=== PATIENT | female | born 1950 | race Caucasian/White ===

== ENCOUNTER 2021-02-17 20:48 | Inpatient (IN) | payer MEDICARE, OTHER ==
[~2021-02-17] VITALS: Ht 162.6 cm; Wt 52.4 kg
[2021-02-17 22:09] LABS: BASOPHIL 0.2 % (0-2); EOSINOPHIL 0 % (0-7); HCT 42.7 % (37.0-47.0); HGB 14.5 g/dl (12.5-16.0); LYMPHOCYTE 24.7 % (15-48); MCH 29.7 pg (25.0-31.0); MCV 87.5 fL (78.0-100.0); MONOCYTE 2.8 % (0-12); MPV 10.2 fL (6.0-9.5); NEUTROPHIL 71.7 % (41-80); NRBC 0; PLT 164 K/uL (150-400); RBC 4.88 M/uL (4.20-5.40); RDW 13.2 % (11.5-14.0)
[2021-02-17 22:12] LABS: WBC 6.4 K/uL (4.0-10.5)
[2021-02-17 22:26] LABS: ALBUMIN 3.4 g/dL (3.4-5.0); BILIRUBIN - TOTAL 0.4 mg/dL (0.2-1.0); CREATININE 0.91 mg/dL (0.51-0.95); GLOBULIN (CALCULATION) 4.3 g/dL; POTASSIUM 3.6 mmol/L (3.5-5.1); TOTAL PROTEIN 7.7 g/dL (6.4-8.2)
[2021-02-18 00:24] LABS: INFLUENZA A NAA NEGATIVE (NEGATIVE)
[2021-02-18 00:27] LABS: CORONAVIRUS 2019 SARS-COV-2 POSITIVE (NEGATIVE)
[2021-02-18 01:30] LABS: BILIRUBIN NEGATIVE (NEGATIVE); BLOOD 2+ Ery/uL (NEGATIVE); CLARITY CLEAR (CLEAR); GLUCOSE (U) NORMAL (NORMAL); LEUKOCYTES NEGATIVE Leu/uL (NEGATIVE); NITRITE NEGATIVE (NEGATIVE); PROTEIN 2+ mg/dL (NEGATIVE); UROBILINOGEN 0.2 mg/dL (0.2-1.0)
[2021-02-18 01:31] LABS: COLOR STRAW (YELLOW)
[2021-02-18 01:32] LABS: BACTERIA TRACE; SQUAMOUS EPITHELIAL CELLS RARE; URINARY WBC RARE
[2021-02-18] MEDS ORDERED: PROTONIX 40MG T40 MG PO (02:16)
[2021-02-18] MEDS ORDERED: ESTRACE1 MG PO (02:17)
[2021-02-18] MEDS ORDERED: CANDESARTAN-HC1 EACH TOP (02:18)
--- NOTE | 2021-02-18 03:14 | NUR ---
PT. C/O NRB FACE MASK HURTING HER FACE. RT IS PLACING PT. ON HIGH FLOW O2 SETTINGS AT 30L & 70%. ER, RN
[2021-02-18 05:31] LABS: BASOPHIL 0.2 % (0-2); EOSINOPHIL 0 % (0-7); HCT 40.1 % (37.0-47.0); HGB 13.4 g/dl (12.5-16.0); LYMPHOCYTE 10.6 % (15-48); MCH 29.7 pg (25.0-31.0); MCHC 33.4 g/dL (32.0-36.0); MCV 88.9 fL (78.0-100.0); MONOCYTE 2.6 % (0-12); MPV 10.5 fL (6.0-9.5); NEUTROPHIL 85.6 % (41-80); NRBC 0; PLT 154 K/uL (150-400); RBC 4.51 M/uL (4.20-5.40); RDW 13.2 % (11.5-14.0)
[2021-02-18 05:34] LABS: BUN/CREAT RATIO (CALC) 21.8 RATIO; CREATININE 0.87 mg/dL (0.51-0.95); WBC 6.1 K/uL (4.0-10.5)
--- NOTE | 2021-02-18 15:31 | NUR ---
02/18/21 Will monitor for 02 needs.
[2021-02-21 07:35] LABS: BASOPHIL 0.2 % (0-2); EOSINOPHIL 0 % (0-7); HCT 38.1 % (37.0-47.0); HGB 12.8 g/dl (12.5-16.0); LYMPHOCYTE 8.4 % (15-48); MCHC 33.6 g/dL (32.0-36.0); MCV 89.2 fL (78.0-100.0); MONOCYTE 6.6 % (0-12); MPV 10.2 fL (6.0-9.5); NEUTROPHIL 82.8 % (41-80); NRBC 0; PLT 318 K/uL (150-400); RBC 4.27 M/uL (4.20-5.40); RDW 13.2 % (11.5-14.0); WBC 11.3 K/uL (4.0-10.5)
[2021-02-21 08:03] LABS: ALBUMIN 2.6 g/dL (3.4-5.0); BILIRUBIN - TOTAL 0.4 mg/dL (0.2-1.0); BUN/CREAT RATIO (CALC) 31.4 RATIO; C-REACTIVE PROTEIN 0.4 mg/dL (<=0.90); CREATININE 0.7 mg/dL (0.51-0.95); GLOBULIN (CALCULATION) 3.3 g/dL; TOTAL PROTEIN 5.9 g/dL (6.4-8.2)
--- NOTE | 2021-02-22 12:22 | NUR ---
02/22/21 Patient lives at home with her spouse. She does not have any DME.
[2021-02-23 11:20] LABS: BASOPHIL 0.2 % (0-2); EOSINOPHIL 0.1 % (0-7); HCT 40.7 % (37.0-47.0); HGB 13.7 g/dl (12.5-16.0); LYMPHOCYTE 2.4 % (15-48); MCH 29.7 pg (25.0-31.0); MCHC 33.7 g/dL (32.0-36.0); MCV 88.1 fL (78.0-100.0); MONOCYTE 2.5 % (0-12); MPV 9.6 fL (6.0-9.5); NRBC 0; PLT 353 K/uL (150-400); RBC 4.62 M/uL (4.20-5.40); RDW 13.1 % (11.5-14.0); WBC 15.9 K/uL (4.0-10.5)
[2021-02-23 11:25] LABS: NEUTROPHIL 93.5 % (41-80)
--- NOTE | 2021-02-23 11:41 | NUR ---
MOVED TO ICU 4 FOR PLANS FOR INTUBATION PLANS TO INTUBATE DISCUSSED WITH PT BY DR. ELY. DR. ELY ALSO SPOKE WITH PT . YASH RT AND ADDITION RT AT BEDSIDE 1028- 2MG VERSED IV PUSH GIVEN 1032 20MG ETOMADATE IVP 1032 100MG SUCC IVP GIVEN INSTRUCTED 1035 INTUBATED WITH 7.5 ET. 23 AT LIP, WITH BREATH SOUNDS AUSCULTATED 1036 VERSED GTT STARTED AT 2ML/HR 1055 PT AWAKE, COUGHING, SITTING UP 5MG VERSED IVP GIVEN 1100 18F SWANN CATH PLACED W/O DIFFICULTY WITH 50ML YELLOW URINE
[2021-02-23 12:09] LABS: ALBUMIN 2.9 g/dL (3.4-5.0); ALKALINE PHOSHATASE 73 U/L (46-116); ALT 105 U/L (14-59); AST 87 U/L (15-37); BILIRUBIN - TOTAL 0.9 mg/dL (0.2-1.0); BUN 19 mg/dL (7-18); BUN/CREAT RATIO (CALC) 31.7 RATIO; C-REACTIVE PROTEIN <0.20 mg/dL (<=0.90); CHLORIDE 104 mmol/L (98-107); CO2 (BICARBONATE) 27 mmol/L (21-32); GLOBULIN (CALCULATION) 3.1 g/dL; GLUCOSE 175 mg/dL (74-106); POTASSIUM 4.4 mmol/L (3.5-5.1)
[2021-02-24 09:01] LABS: BASOPHIL 0.3 % (0-2); EOSINOPHIL 1.2 % (0-7); HCT 39.1 % (37.0-47.0); HGB 12.5 g/dl (12.5-16.0); LYMPHOCYTE 6.8 % (15-48); MCH 29.6 pg (25.0-31.0); MCV 92.7 fL (78.0-100.0); MONOCYTE 1.9 % (0-12); MPV 10.4 fL (6.0-9.5); NEUTROPHIL 87.6 % (41-80); NRBC 0; PLT 206 K/uL (150-400); RBC 4.22 M/uL (4.20-5.40); RDW 13.5 % (11.5-14.0); WBC 12.9 K/uL (4.0-10.5)
[2021-02-24 10:08] LABS: ALBUMIN 2.4 g/dL (3.4-5.0); ALKALINE PHOSHATASE 55 U/L (46-116); ALT 83 U/L (14-59); AST 66 U/L (15-37); BILIRUBIN - TOTAL 0.4 mg/dL (0.2-1.0); BUN 13 mg/dL (7-18); BUN/CREAT RATIO (CALC) 16.5 RATIO; CHLORIDE 105 mmol/L (98-107); CO2 (BICARBONATE) 25 mmol/L (21-32); CREATININE 0.79 mg/dL (0.51-0.95); GLOBULIN (CALCULATION) 3.1 g/dL; GLUCOSE 156 mg/dL (74-106); MAGNESIUM 2.1 mg/dL (1.8-2.4); POTASSIUM 4.9 mmol/L (3.5-5.1); TOTAL PROTEIN 5.5 g/dL (6.4-8.2)
[2021-02-24 10:10] LABS: C-REACTIVE PROTEIN < 0.20 mg/dL (<=0.90)
--- NOTE | 2021-02-24 12:42 | NUR ---
TF JEVITY 1.2 STARTED AT 1225 WILL CTM, WILL INCREASE BY 10-20ML Q 8 N HOURS UNTIL GOAL OF 55 IS REACHED.
--- NOTE | 2021-02-24 18:15 | NUR ---
NOTIFIED MD AT 1737 OF PT SOFT BP 500CC NS BOLUS ORDERED WILL CTM.
[2021-02-25 06:59] LABS: BASOPHIL 0.2 % (0-2); EOSINOPHIL 0.3 % (0-7); HCT 38.4 % (37.0-47.0); HGB 12.4 g/dl (12.5-16.0); LYMPHOCYTE 1.7 % (15-48); MCH 29.7 pg (25.0-31.0); MCHC 32.3 g/dL (32.0-36.0); MCV 91.9 fL (78.0-100.0); MONOCYTE 1.3 % (0-12); MPV 10.9 fL (6.0-9.5); NRBC 0; PLT 153 K/uL (150-400); RBC 4.18 M/uL (4.20-5.40); RDW 13.5 % (11.5-14.0); WBC 12.6 K/uL (4.0-10.5)
[2021-02-25 07:29] LABS: ALBUMIN 2.3 g/dL (3.4-5.0); BILIRUBIN - TOTAL 0.4 mg/dL (0.2-1.0); BUN/CREAT RATIO (CALC) 25.5 RATIO; CREATININE 0.47 mg/dL (0.51-0.95); GLOBULIN (CALCULATION) 3.1 g/dL; POTASSIUM 4.4 mmol/L (3.5-5.1); TOTAL PROTEIN 5.4 g/dL (6.4-8.2)
--- NOTE | 2021-02-25 18:46 | NUR ---
NOTIFIED DR. ELY SEVERAL TIMES OF HYPOTENSION. WHEN SEDATION WAS ATTEMPTED TO BE WEANED, THE PT GOT VERY AGITATED AND BEGAN FIGHTING THE VENT. DR. ELY ORDERED ONE TIME DOSE OF FENTANYL 100MCG FOR AGITATION. THIS HELPED FOR THE TIME BEING. BP CONTINUED TO DECREASE WITH SEDATION AT HIGHER LEVELS. FENTANYL DECREASED WHILE VERSED INCREASED TRYING TO MAINTAIN MAP ABOVE 65. MD AWARE OF CHANGES. STATED SHE MAY GET A CENTRAL LINE TOMORROW AND BE STARTED ON LEVOPHED IF NEEDED, BUT JUST MONITOR AND ADJUST SEDATION ACCORDINGLY FOR NOW.
--- NOTE | 2021-02-25 19:03 | NUR ---
ADDENDUM: 02/25/21 0530 RT IN ROOM DUE TO DESAT IN THE 80'S. RT CAME OUT AND SAID THE PT WAS AGITATED, BUCKING THE VENT, AND NEEDED TO BE SEDATED MORE. PRIMARY RN ACTIVELY INVOLVED IN CODE. SECONDARY RN, BRYAN,RN, INTERVENED WITH PT. VERSED AND FENTYNL DRIPS WERE TITRATED AT THIS TIME. NO REPSONSE.PT SATS GOT DOWN TO 61% 2 MG ATIVAN PUSHED. RT ADJUSTED VENT SETTINGS. AT 0532, AFTER ABOUT 10 MIN WITH NO REACTION 200MG OF SUCC WAS PUSHED. PT. WAS RELAXED AND O2 SAT GRADUALLY CLIMBED AND REACHED 94%. WILL CONTINUE TO MONITOR. ER,RN
--- NOTE | 2021-02-25 20:14 | NUR ---
RT ASSISTED RN PALMER WITH TURNING PATIENT TO THE RIGHT AND PULLING UP IN BED. PATIENT SUCTIONED WITH SCANT CLEAR SECRETIONS. PATIENT BECAME TACHY WITH HR THE 130s AND DESAT TO 70%. AGITATED ON VENT. RR IN THE 40s ON VENT. PATIENT DID NOT IMPROVE WITH VENT INCREASED TO 100% PATIENT WAS TAKEN OFF VENT AND BAGGED WITH PEEP VALVE SET AT 15. PATIENT SAT IMPRROVED TO 100% AND HR CAME DOWN TO 94. PATIENT WAS THEN PLACED BACK ON THE VENT WITH RESPIRATIONS COMING DOWN TO 22. CONITNUE TO MONITOR PATIENT.
--- NOTE | 2021-02-26 04:04 | NUR ---
PATIENT HAS HAD MUTIPLE DESATS INTO THE 70s WITH HR REPEATEDLY GOING TACHY INTO THE 130s AND RR 40s ON THE VENTILATOR. PATIENT HAS HAD THE SAME MOVEMENTS A POSTURING TYPE MOVEMENT WITH SHOULDERS AND ARMS MOVING UP WITH EACH DESAT EVENT. ILDA CHAKRABORTY HAS BEEN AT BEDSIDE EVERYTIME AND ALEC DILL NOTIFIED AND AWARE. ABG OBTAINED THIS MORNING AFTER DESAT/HR EPISODE WHEN PATIENT WAS BAGGED BACK TO 100%. WHEN PATIENT IS GIVEN FENTANYL SHE BREATHES ALONG WITH VENT AND EPISODE STOPS UP UNTIL MEDICINE WEARS OFF. RESULTS FOLLOWS PH 7.396/46.3/PO2 49.2/28.4/ SAT 85.6% OBTAINED ON VENT SETTINGS AC VT450, RATE 20, +14 PEEP, 80% RESULTS SHOWN TO ALEC DILL. VERBALLY ORDERED RATE TO 22, FIO2 100% AND PEEP INCREASED TO 16
[2021-02-26 05:29] LABS: BASOPHIL 0.3 % (0-2); EOSINOPHIL 0.5 % (0-7); HCT 39.4 % (37.0-47.0); HGB 12.9 g/dl (12.5-16.0); LYMPHOCYTE 3.4 % (15-48); MCH 29.7 pg (25.0-31.0); MCHC 32.7 g/dL (32.0-36.0); MCV 90.8 fL (78.0-100.0); MONOCYTE 1.9 % (0-12); MPV 10.9 fL (6.0-9.5); NRBC 0.1; PLT 358 K/uL (150-400); RBC 4.34 M/uL (4.20-5.40); RDW 13.9 % (11.5-14.0); WBC 14.6 K/uL (4.0-10.5)
[2021-02-26 05:31] LABS: NEUTROPHIL 90.3 % (41-80)
--- NOTE | 2021-02-26 05:33 | NUR ---
PATIENT HAS HAD CONTINUED DESAT EPISODES. SPOKE WITH ENROLLMENT COUNSELOR TO GET GRILL ATTENDANT CXR. PATIENT HAS HAD GOOD EQUAL BREATH SOUNDS THROUGHOUT THE NIGHT CONFIRMED BY RN PALMER. AFTER CHEST XRAY AND AGAIN REASSESSMENT PATIENT FOUND TO HAVE CREPITUS IN RUL QUADRANT. SADEFIED ALEC DENNIS IMMEDIATELY. ALEC AT BEDSIDE ASSESSING. PER RN PATIENT HAS BEEN HAVING THESE EPISODES THE PAST FEW DAYS AND HAD DESATS THE NIGHT BEFORE AND ON DAYSHIFT YESTERDAY. ORDERED TO DECREASE PEEP, PEEP DECREASED TO 8. AWAITING FURTHER ORDERS FROM ENROLLMENT COUNSELOR.
--- NOTE | 2021-02-26 06:56 | NUR ---
DR. JULIO PLACED RT SIDE CHEST TUBE. CREPITUS HEARD ON AUSCULTATION AFTER CHEST TUBE PLACED. CREPITUS FELT ON RT SIDE OF NECK. AGAIN CREPITUS WAS NOT FELT OR HEARD ANYTIME DURING THE SHIFT PRIOR TO THIS MORNING AFTER FIRST CXR OBTAINED AND CONFIRMED WITH RN PALMER. PATIENT WAS BAGGED AND HYPERVENTILATED WITH AMBU BAG AND PEEP 10 ON PEEP VALVE THROUGHOUT THE PROCEDURE. PATIENT PLACED BACK ON VENT AFTER PROCEDURE AND XRAY TAKEN. PLACED BACK ON AC VT450, RATE 22, +10 PEEP AND 100% HR IMPROVED BUT PATIENT STILL HAVING TRENDING DESATURATIONS. REPORT GIVEN AT BEDSIDE TO DAYSHIFT RT BENNIE.
--- NOTE | 2021-02-26 08:02 | NUR ---
02/26/20 2230: PT HAVING EPISODES OF DESATTING ON THE VENT. PT BECOMES AGITATED AND OXYGEN SAT DROPS FROM MID 90'S TO 60-70'S. PT HR ALSO INCREASES FROM NSR 80'S TO ST 130'S. RR INCREASES FROM 20 TO 30-40'S. ON DAY SHIFT PATIENT WAS MANUALLY BAGGED AND THIS IMPROVED SAT BACK TO 90'S, IMPROVED HR BACK TO 70'S, AND IMPROVED RR BACK TO 20. PT WAS BAGGED AT THIS TIME AND VITAL SIGNS RETURNED TO BASELINE PRIOR TO AGITATION BUT PATIENT QUCIKLY DESATS AGAIN WITHIN MINUTES OF BAGGING. AT THIS TIME 100MG FENTANYL IVP ORDERED. 02/26/21 0300: PT BEGINS TO HAVE DESATTING EPISODE AGAIN AND IS BAGGED TO IMPROVE VITALS. PT CONTINUES TO FREQUENTLY DESAT QUICKLY. BLOOD GAS DRAWN AT 0343. PO2 49 ON GAS. VENT SETTINGS ADJUSTED AND CHEST XRAY TO BE ORDERED. 02/26/21 0400: PT CONTINES TO DESAT QUICKLY AFTER BAGGING. PT BECOMES MORE CALM AFTER BAGGING BUT SHORTLY AFTER BEGINS TO PULL ON RESTRAINTS. 100MG FENTANYL, 2MG ATIVAN, AND 200MG SUCCINYLCHOLINE GIVEN AT THIS TIME. ONLY SUCCINYLCHOLINE WAS ABLE TO PREVENT THE DESATTING. 02/26/21 0500: CHEST XRAY OBTAINED. INTREPRETTED BUT RUBBER ROLLER GRINDER. PT NOTED TO HAVE FREE AIR IN L UPPER CHEST. UPON ASSESSMENT OF PATIENT THERE WAS NOTED TO BE CREPITUS IN L UPPER CHEST THAT WAS NOT PRESENT IN BEGINNING OF SHIFT. ER DOCTOR NOTIFIED FOR NEED OF CHEST TUBE. 02/26/21 0630: 20 MALTESE CHEST TUBE PLACED IN L CHEST. NO COMPLICATIONS WITH PROCEDURE.
[2021-02-26 08:21] LABS: BUN 16 mg/dL (7-18); BUN/CREAT RATIO (CALC) 26.7 RATIO; C-REACTIVE PROTEIN < 0.20 mg/dL (<=0.90); CHLORIDE 102 mmol/L (98-107); CO2 (BICARBONATE) 32 mmol/L (21-32); GLUCOSE 147 mg/dL (74-106); POTASSIUM 4.7 mmol/L (3.5-5.1)
--- NOTE | 2021-02-26 09:31 | NUR ---
RADIOLOGIST CALLED AND SAID PNEUMO ON THE RIGHT WORSE AFTER PLACEMENT OF THE CHEST TUBE. DR SOLIZ AND MONTSE RN NOTIFIED, JHOANA SAID DR HANCOCK REVIEWING MAY NEED TO ADD ANOTHER CHEST TUBE ON THE RIGHT,
--- NOTE | 2021-02-26 14:21 | NUR ---
0650-WHILE BEING GIVEN REPORT FROM PALMER RN. PT BEGIN DESATING IN THE 70'S, HR130'S PALMER AND I APPLIED OUR PPE AND MANUELLY BAGGED PT. PT SAT RETURNED TO 95% PT PLACED BACK ON VENTILATOR. WE CONTINUED REPORT AT BEDSIDE PT QUICKLY BEGIN DESATING AGAIN, AND WE HAD TO BAG PT AGAIN, AFTER A FEW MINUTES OF BAGGING PT O2 RETURNED TO 96% AND PLACED BACK ON VENT. INFORMED BY DR. ELY THAT PNEUMO IN LEFT CHEST ALMOST RESOLVED, BUT PT NOW HAS A LARGE PNEUMO ON RIGHT SIDE. DR. JULIO FROM ER WILL BE COMING TO PLACE CHEST TUBE. 0800 DR. JULIO AT BEDSIDE TO PLACE A 20 F CHEST TUBE AT BEDSIDE. PT DESATED SEVERAL TIMES DURING PROCEDURE AND NEEDED TO BE BAGGED. AFTER 1ST AND 2ND XRAY DR. JULIO ADJUSTED THE POSITION OF CHEST TUBE, THAN . ON THIRD XRAY CHEST TUBE WAS THOUGHT TO BE IN GOOD POSITION. AWAITING OFFICIAL RADIALOGY READING OF XRAY.
--- NOTE | 2021-02-26 14:39 | NUR ---
0930 INFORMED BY CASSIE Arvizu RN THAT RADIOLOGIST CALLED AND RIGHT PNEUMO HAS WORSENED. DR. HANCOCK CONTACTED BY DR. ELY FOR PLACEMENT ON RIGHT CHEST TUBE. 0940 PT CONTINUES TO DESAT AND IS BEING MANUALLY BAGGED BY MY SELF. DR. ELY AT BEDSIDE. PT BP DROPPED TO 64/39 PULSE PALPATED IN R GROIN SEDATIION STOPPED. CASSIE Arvizu RN AT BEDSIDE. 0945 EPI 1MG IV GIVEN ORDERED BY DR. ELY BP ELEVATED TO 180/90, HR 140'S AFTER DOSE OF EPI GIVEN PT CONTINUES TO HAVE EPISODES OF DESATING WITH NEED TO BAG PT FOR INCREASE OF SATURATION. PEEP INCREASED TO 15 PER RT SUGGESTION AND DR. ELY'S ORDERS. VECC. IV PUSH GIVEN ORDERED AND VECC DRIP STARTED AT 0.8MCG OR 27.8ML/HR PT O2 AT 94%. 1020 PT ,DAUGHTER AND SON ARRIVED. DR. ELY SPOKE WITH FAMILY. EXPLAINED IN DETAIL HER CONDITION. PT STATED HIS WISHES FOR EVERYTHING TO BE DONE. FAMILY WAS ALLOWED TO COME TO WINDOW TO SEE. PT. 1045- AT BEDSIDE WITH DR. ELY TO ASSIST WITH CENTRAL LINE PLACEMENT. DR. ELY PLACED CENTRAL LINE WITH ULTRASOUND. 1120 DR. HANCOCK AT BEDSIDE FOR PLACEMENT ON RIGHT CHEST TUBE AFTER SPEAKING WITH . DR. HANCOCK PLACED A 28F CHEST TUBE IN RIGHT CHEST/BREAST AREA AND SUTURES IN PLACE. THE OTHER RIGHT CHEST TUBE WAS REMOVED AND DRESSED BY DR. HANCOCK. STAT CHEST XRAY ORDERED FOR CHEST TUBE AND CENTRAL LINE PLACEMENT. DR. HANCOCK REPORTS CHEST TUBE IN GOOD PLACE ALMOST RESOLVED PNEUMO PER DR. ELY CENTRAL LINE IN GOOD PLACE AND OKAY'D TO USE.
[2021-02-27 04:29] LABS: BASOPHIL 0.1 % (0-2); EOSINOPHIL 0.1 & (0-7); HCT 38.3 % (37.0-47.0); HGB 12.1 g/dl (12.5-16.0); LYMPHOCYTE 2.4 % (15-48); MCH 29.6 pg (25.0-31.0); MCHC 31.6 g/dL (32.0-36.0); MCV 93.6 fL (78.0-100.0); MONOCYTE 1.7 % (0-12); MPV 9.7 fL (6.0-9.5); PLT 357 K/uL (150-400); RBC 4.09 M/uL (4.20-5.40); RDW 14.1 % (11.5-14.0); WBC 12.64 K/uL (4.0-10.5)
[2021-02-27 04:32] LABS: NEUTROPHIL 94.8 % (41-80)
[2021-02-27 06:35] LABS: ALBUMIN 2.4 g/dL (3.4-5.0); BILIRUBIN - TOTAL 0.3 mg/dL (0.2-1.0); BUN/CREAT RATIO (CALC) 31.5 RATIO; CREATININE 0.54 mg/dL (0.51-0.95); GLOBULIN (CALCULATION) 3.1 g/dL; POTASSIUM 5.3 mmol/L (3.5-5.1); TOTAL PROTEIN 5.5 g/dL (6.4-8.2)
[2021-02-28 04:31] LABS: BASOPHIL 0.1 % (0-2); EOSINOPHIL 0.2 & (0-7); HCT 36.8 % (37.0-47.0); HGB 11.5 g/dl (12.5-16.0); LYMPHOCYTE 1.4 % (15-48); MCH 29.6 pg (25.0-31.0); MCHC 31.3 g/dL (32.0-36.0); MCV 94.6 fL (78.0-100.0); MONOCYTE 2.8 % (0-12); MPV 9.7 fL (6.0-9.5); NEUTROPHIL 94.2 % (41-80); PLT 292 K/uL (150-400); RBC 3.89 M/uL (4.20-5.40); RDW 13.7 % (11.5-14.0); WBC 12.54 K/uL (4.0-10.5)
[2021-02-28 06:17] LABS: BUN/CREAT RATIO (CALC) 46.9 RATIO; CREATININE 0.49 mg/dL (0.51-0.95); POTASSIUM 5.5 mmol/L (3.5-5.1)
--- NOTE | 2021-02-28 09:09 | NUR ---
02/28/21 Patient is intubated and on waiting list at [facility].
[2021-03-01 04:46] LABS: BASOPHIL 0.3 % (0-2); EOSINOPHIL 0.1 % (0-7); HCT 35.6 % (37.0-47.0); HGB 11.2 g/dl (12.5-16.0); MCH 29.9 pg (25.0-31.0); MCHC 31.5 g/dL (32.0-36.0); MCV 94.9 fL (78.0-100.0); MONOCYTE 3.4 % (0-12); NRBC 0; PLT 272 K/uL (150-400); RBC 3.75 M/uL (4.20-5.40); RDW 13.5 % (11.5-14.0); WBC 10.7 K/uL (4.0-10.5)
[2021-03-01 04:52] LABS: NEUTROPHIL 93.4 % (41-80)
[2021-03-01 05:43] LABS: BUN/CREAT RATIO (CALC) 60.4 RATIO; CREATININE 0.48 mg/dL (0.51-0.95); MAGNESIUM 2.3 mg/dL (1.8-2.4); POTASSIUM 5.3 mmol/L (3.5-5.1)
[2021-03-03 04:30] LABS: BASOPHIL 0.3 % (0-2); EOSINOPHIL 0.1 % (0-7); HCT 34.3 % (37.0-47.0); HGB 10.8 g/dl (12.5-16.0); LYMPHOCYTE 3.4 % (15-48); MCH 30.1 pg (25.0-31.0); MCHC 31.5 g/dL (32.0-36.0); MCV 95.5 fL (78.0-100.0); MONOCYTE 4.8 % (0-12); NEUTROPHIL 86.1 % (41-80); NRBC 0; PLT 242 K/uL (150-400); RBC 3.59 M/uL (4.20-5.40); RDW 13.6 % (11.5-14.0)
[2021-03-03 04:34] LABS: WBC 10.1 K/uL (4.0-10.5)
[2021-03-03 04:41] LABS: INR 0.92 (0.9-1.2); PROTHROMBIN TIME 11.8 SECONDS (11.8-13.4)
[2021-03-03 05:01] LABS: ALBUMIN 2.5 g/dL (3.4-5.0); ALKALINE PHOSHATASE 101 U/L (46-116); ALT 114 U/L (14-59); AST 51 U/L (15-37); BILIRUBIN - TOTAL 0.4 mg/dL (0.2-1.0); BUN 29 mg/dL (7-18); BUN/CREAT RATIO (CALC) 72.5 RATIO; CHLORIDE 100 mmol/L (98-107); CO2 (BICARBONATE) 39 mmol/L (21-32); GLOBULIN (CALCULATION) 3.1 g/dL; GLUCOSE 182 mg/dL (74-106); MAGNESIUM 2.2 mg/dL (1.8-2.4); POTASSIUM 5.2 mmol/L (3.5-5.1); TOTAL PROTEIN 5.6 g/dL (6.4-8.2)
[2021-03-03 05:05] LABS: C-REACTIVE PROTEIN < 0.20 mg/dL (<=0.90)
--- NOTE | 2021-03-03 22:27 | NUR ---
1939 ASSISTED MD WITH BRONCHOSCOPY AND ADVANCEMENT OF ETT. MD ADVANCED TO 23@LIP. DURING PROCEDURE PT BITING DOWN ON TUBE, FIGHTING AGAINST VENT. VERBAL ORDER TO INCREASE DIPRIVAN TO 50MCG DURING PROCEDURE. PT TOLERATED WELL. ETT SECURED, CUFF INFLATED, RT VERIFIED AT BEDSIDE. VENT SETTING UNCHANGED. CHEST XRAY OBTAINED FOR PLACEMENT. EQUAL BREATH SOUNDS NOTED. PT CALM AND RESTING.
[2021-03-04 09:08] LABS: CREATININE 0.4 mg/dL (0.51-0.95); INR 1.02 (0.9-1.2); POTASSIUM 4.6 mmol/L (3.5-5.1); PROTHROMBIN TIME 12.8 SECONDS (11.8-13.4)
--- NOTE | 2021-03-04 15:38 | NUR ---
[address] MEDINA TO INFORM HIM OF PT TEMPERATURES AND THAT WE PLACED EMELINA CHAPARRO ON PT. NO FURTHER ORDERS AT THIS TIME, WILL CTM.
--- NOTE | 2021-03-04 17:54 | NUR ---
TOF 3/4, BIS 41.
--- NOTE | 2021-03-04 22:58 | NUR ---
2144 TURNED PT TO LEFT SIDE ASSISTX2, PT VITALS BP-184/90, HR-101, BIS-86 O2 DECREASED TO 92% FROM 95% 2200 PT BIS-79, BP 184/91, HR-100, O2-89%, OXYGEN CONTINUING TO DECREASE LOW 86%. REMOVED WEDGE AND TURNED PT ON BACK, ORAL AND DEEP SUCTIONED PT-NO SPUTUM NOTED. BREATH SOUNDS UNCHANGED CLEAR TO DIM IN THE BASES, CREPITUS UNCHANGED-NO NEW AREAS NOTED, CHEST TUBES IN PLACE AND DRESSING INTACT. SEDATION INCREASED (SEE IV TITRATION CHARTING), FIO2 INCREASED TO 100%, 0XYGEN 91%. RT AND APPLICATION SECURITY ENGINEER NOTIFIED. NO NEW ORDERS AT THIS TIME.
[2021-03-05 04:40] LABS: BASOPHIL 0.4 % (0-2); EOSINOPHIL 0.1 % (0-7); MCH 29.7 pg (25.0-31.0); MCHC 31.4 g/dL (32.0-36.0); MCV 94.6 fL (78.0-100.0); MONOCYTE 3.2 % (0-12); NEUTROPHIL 86.6 % (41-80); NRBC 0; PLT 257 K/uL (150-400); RDW 13.6 % (11.5-14.0); WBC 14.1 K/uL (4.0-10.5)
[2021-03-05 05:13] LABS: BUN 36 mg/dL (7-18); BUN/CREAT RATIO (CALC) 83.7 RATIO; CHLORIDE 102 mmol/L (98-107); CO2 (BICARBONATE) 42 mmol/L (21-32); CREATININE 0.43 mg/dL (0.51-0.95); GLUCOSE 134 mg/dL (74-106); MAGNESIUM 2.5 mg/dL (1.8-2.4); POTASSIUM 4.7 mmol/L (3.5-5.1)
[2021-03-05 05:14] LABS: C-REACTIVE PROTEIN < 0.20 mg/dL (<=0.90)
[2021-03-05 17:52] LABS: BILIRUBIN NEGATIVE (NEGATIVE); BLOOD 1+ Ery/uL (NEGATIVE); CLARITY CLEAR (CLEAR); COLOR YELLOW (YELLOW); GLUCOSE (U) NORMAL (NORMAL); LEUKOCYTES NEGATIVE Leu/uL (NEGATIVE); NITRITE NEGATIVE (NEGATIVE); PROTEIN TRACE (LOW) mg/dL (NEGATIVE); SPECIFIC GRAVITY 1.015 (1.001-1.030); pH 7.5 (5.0-9.0)
[2021-03-05 18:02] LABS: BACTERIA 2+
[2021-03-05 18:03] LABS: MUCOUS TRACE; TRIPLE PHOSPHATE CRYSTALS LARGE
[2021-03-06 05:12] LABS: BASOPHIL 0.2 % (0-2); EOSINOPHIL 0.2 % (0-7); HCT 30.5 % (37.0-47.0); HGB 9.7 g/dl (12.5-16.0); LYMPHOCYTE 4.2 % (15-48); MCH 29.9 pg (25.0-31.0); MCHC 31.8 g/dL (32.0-36.0); MCV 94.1 fL (78.0-100.0); MONOCYTE 3.4 % (0-12); MPV 10.1 fL (6.0-9.5); NRBC 0; PLT 222 K/uL (150-400); RBC 3.24 M/uL (4.20-5.40); RDW 13.7 % (11.5-14.0); WBC 12.8 K/uL (4.0-10.5)
[2021-03-06 05:20] LABS: NEUTROPHIL 86.3 % (41-80)
[2021-03-06 06:09] LABS: BUN/CREAT RATIO (CALC) 96.7 RATIO; CREATININE 0.3 mg/dL (0.51-0.95); POTASSIUM 4.2 mmol/L (3.5-5.1)
--- NOTE | 2021-03-07 07:05 | NUR ---
MESERET FROM [facility] CALLED TO CHECK ON PT. STATUS. STILL NO BED AVAILABLE. 0558 BESSIE,RN
--- NOTE | 2021-03-07 08:30 | NUR ---
0820 PT TEMP 93.8 RECTAL, DR SARGENT NOTIFIED AND PLACED A EMELINA HUGGER TO HELP INCREASE TEMPERATURE
--- NOTE | 2021-03-07 20:16 | NUR ---
1230 PT WAS PLACED BACK ON HER BACK FROM PRONE POSITION, SAT DROPPED TO 89% SO RESP INCREASED HER FIO2 FROM 80 BACK UP TO 90% AND THEN HAD TO INCREASE AGAIN TO 100% TO KEEP HER SATS ABOVE 92 %. TUBE FEED WAS STARTED BACK AT 40ML/HR 1730 PT WAS NOT TOLERATING BEING ON HER BACK SO SHE WAS PLACED BACK IN PRONE POSITION, 2 RT, 3RN AND A EDUCATIONAL TECHNICIAN, HELPED WITH POSITIONING TUBE FEEDS WAS CONTINUED BUT AT A LOWER RATE OF 20ML/HR
[2021-03-08 06:04] LABS: BASOPHIL 0.2 % (0-2); EOSINOPHIL 0.3 % (0-7); HGB 9.4 g/dl (12.5-16.0); LYMPHOCYTE 3.8 % (15-48); MCH 29.9 pg (25.0-31.0); MCHC 31.3 g/dL (32.0-36.0); MCV 95.5 fL (78.0-100.0); MONOCYTE 3.8 % (0-12); MPV 10.4 fL (6.0-9.5); NEUTROPHIL 86.3 % (41-80); NRBC 0; PLT 217 K/uL (150-400); RBC 3.14 M/uL (4.20-5.40); RDW 14.6 % (11.5-14.0); WBC 11.9 K/uL (4.0-10.5)
[2021-03-08 06:29] LABS: CREATININE 0.3 mg/dL (0.51-0.95); POTASSIUM 3.8 mmol/L (3.5-5.1)
[2021-03-09 02:53] LABS: ALBUMIN 1.9 g/dL (3.4-5.0); BILIRUBIN - TOTAL 0.6 mg/dL (0.2-1.0); BUN/CREAT RATIO (CALC) 93.3 RATIO; CREATININE 0.3 mg/dL (0.51-0.95); GLOBULIN (CALCULATION) 2.7 g/dL; TOTAL PROTEIN 4.6 g/dL (6.4-8.2)
[2021-03-09 03:05] LABS: POTASSIUM 4.2 mmol/L (3.5-5.1)
[2021-03-10 04:18] LABS: BASOPHIL 0.5 % (0-2); EOSINOPHIL 0.4 % (0-7); HCT 34.1 % (37.0-47.0); HGB 10.5 g/dl (12.5-16.0); LYMPHOCYTE 2.2 % (15-48); MCHC 30.8 g/dL (32.0-36.0); MCV 97.4 fL (78.0-100.0); MONOCYTE 3.6 % (0-12); MPV 10.7 fL (6.0-9.5); NEUTROPHIL 87.6 % (41-80); NRBC 0; PLT 229 K/uL (150-400); RDW 15.6 % (11.5-14.0); WBC 16.6 K/uL (4.0-10.5)
[2021-03-10 04:29] LABS: BUN 31 mg/dL (7-18); BUN/CREAT RATIO (CALC) 114.8 RATIO; CHLORIDE 107 mmol/L (98-107); CO2 (BICARBONATE) 33 mmol/L (21-32); CREATININE 0.27 mg/dL (0.51-0.95); GLUCOSE 153 mg/dL (74-106); POTASSIUM 3.9 mmol/L (3.5-5.1)
[2021-03-11 05:24] LABS: BASOPHIL 0.6 % (0-2); EOSINOPHIL 0.4 % (0-7); HGB 10.8 g/dl (12.5-16.0); LYMPHOCYTE 2.8 % (15-48); MCH 30.1 pg (25.0-31.0); MCHC 30.9 g/dL (32.0-36.0); MCV 97.5 fL (78.0-100.0); MONOCYTE 2.6 % (0-12); MPV 10.9 fL (6.0-9.5); NEUTROPHIL 87.3 % (41-80); NRBC 0; PLT 253 K/uL (150-400); RBC 3.59 M/uL (4.20-5.40); RDW 16.1 % (11.5-14.0)
[2021-03-11 05:28] LABS: WBC 16.7 K/uL (4.0-10.5)
[2021-03-11 06:12] LABS: BUN/CREAT RATIO (CALC) 253.8 RATIO; CREATININE 0.13 mg/dL (0.51-0.95); POTASSIUM 3.9 mmol/L (3.5-5.1)
[2021-03-12 04:33] LABS: BASOPHIL 0.5 % (0-2); EOSINOPHIL 0.5 % (0-7); HGB 9.9 g/dl (12.5-16.0); LYMPHOCYTE 2.7 % (15-48); MCH 30.3 pg (25.0-31.0); MCHC 30.9 g/dL (32.0-36.0); MCV 97.9 fL (78.0-100.0); MONOCYTE 4.9 % (0-12); MPV 10.9 fL (6.0-9.5); NEUTROPHIL 85.6 % (41-80); NRBC 0; PLT 214 K/uL (150-400); RBC 3.27 M/uL (4.20-5.40); RDW 16.2 % (11.5-14.0); WBC 13.2 K/uL (4.0-10.5)
[2021-03-12 04:57] LABS: BUN/CREAT RATIO (CALC) 121.7 RATIO; CREATININE 0.23 mg/dL (0.51-0.95)
--- NOTE | 2021-03-12 10:50 | NUR ---
0930 PATIENT PLACED ON BACK FOM PRONE POSITION, TOLERATED WELL.
--- NOTE | 2021-03-12 20:22 | NUR ---
PATIENT CURRENTLY PRONE. CRESCENCIO CREPITUS TO TOUCH, SUB Q AIR HEARD THROUGHOUT CRESCENCIO. ILDA CHAKRABORTY AT BEDSIDE. ALEC DILL NOTIFIED. NEW TO RN.RT THIS EVENING NOT HEARD LAST NIGHT ON OUR SHIFT.
--- NOTE | 2021-03-13 02:04 | NUR ---
PATIENT HAS WORSENING SUBQ AIR THROUGHOUT LEFT LUNG PAREDES POSTERIOR PATIENT REMAINS PRONE. ALEC DILL NOTIFIED. PATIENT BREATH SOUNDS HAVE ALSO BECAME MORE DIMINISHED SINCE THE START OF THE SHIFT. PATIENT HAS NOT HAD A DESAT EVENT THIS SHIFT. ET TUBE REPOSITIONED TO ALLIEVATE PRESSURE ON BOTTOM LIP. UNABLE TO FULLY TURN PATIENT HEAD DUE TO CENTRAL LINE PLACEMENT. PADDING ADDED TO CHIN TO BEST PREVENT SKIN BREAKDOWN. CONTINUE TO MONITOR PATIENT
[2021-03-13 03:18] LABS: BASOPHIL 0.3 % (0-2); EOSINOPHIL 0.3 % (0-7); HCT 31.2 % (37.0-47.0); HGB 9.7 g/dl (12.5-16.0); MCH 30.4 pg (25.0-31.0); MCHC 31.1 g/dL (32.0-36.0); MCV 97.8 fL (78.0-100.0); MONOCYTE 4.5 % (0-12); MPV 10.4 fL (6.0-9.5); NEUTROPHIL 84.3 % (41-80); NRBC 0.2; PLT 210 K/uL (150-400); RBC 3.19 M/uL (4.20-5.40); RDW 16.3 % (11.5-14.0); WBC 12.2 K/uL (4.0-10.5)
[2021-03-13 03:46] LABS: BUN/CREAT RATIO (CALC) 118.2 RATIO; CREATININE 0.22 mg/dL (0.51-0.95); POTASSIUM 4.1 mmol/L (3.5-5.1)
--- NOTE | 2021-03-13 10:42 | NUR ---
0900 PATIENT RETURNED TO BACK FROM PRONE POSITION. HOB 35 DEGREES. PATIENT TOLERATED WELL, ALL TUBES LINES AND DRAINS IN PLACE
--- NOTE | 2021-03-13 12:56 | NUR ---
LATE NETRY 0800 MASSIVE SUBCUTANEOUS AIR NOTED THROUGH OUT PATIENTS UPPER BACK, CHEST AND NECK. DR ELY NOTIFIED, NO NEW ORDERS AT THIS TIME
--- NOTE | 2021-03-13 12:57 | NUR ---
1215 PATIENT TURNED TO LEFT SIDE, RECTAL TEMP 95.3. PATIENT DID NOT TOLERATE TURNING WELL, O2 SAT DROPPED TO 72% ON 70% FIO2. FIO2 INCREASED TO 100% AND PATIENT RECOVERED ON BACK. DR ELY NOTIFIED, OK TO PLACE EMELINA HUGGER ON PATIENT AND TURN FIO2 TO 80%.
--- NOTE | 2021-03-13 14:42 | NUR ---
1435 RECTAL TEMP 96.3, EMELINA HUGGER STILL IN PLACE. PATIENT DESAT TO 80% ON 80% FIO2, MD NOTIFIED AND FIO2 TURNED UP TO 100% AT THIS TIME
--- NOTE | 2021-03-13 18:37 | NUR ---
1600 PATIENT SATTING 88-89% ON 100% FIO2. RT CALLED AND AT BEDSIDE, ADVANCED ET TUBE TO 22 @ THE LIP AND REINFLATED CUFF. DR ELY NOTIFIED, ORDERED TO CHANGE PEEP TO 10. PATIENT O2 INCREASED TO 90%.
--- NOTE | 2021-03-13 18:39 | NUR ---
1700 PATIENT REPOSITIONED TO PRONE, TOLERATED WELL. ALL TUBES, LINES AND DRAINS IN PLACE
--- NOTE | 2021-03-13 22:50 | NUR ---
RD phone call to unit to discuss nutrition support. Discussed POC with Milana RN: patient rate adjusted to position; proning 16hr/day; receiving Quique + Proteinex for increased protein needs. will cont to monitor for TF adjustments d/t respiratory condition.
[2021-03-14 03:37] LABS: BASOPHIL 0.3 % (0-2); EOSINOPHIL 0.9 % (0-7); HCT 28.1 % (37.0-47.0); HGB 8.7 g/dl (12.5-16.0); LYMPHOCYTE 4.6 % (15-48); MCH 30.1 pg (25.0-31.0); MCV 97.2 fL (78.0-100.0); MONOCYTE 4.2 % (0-12); MPV 10.7 fL (6.0-9.5); NEUTROPHIL 84.6 % (41-80); NRBC 0.2; PLT 177 K/uL (150-400); RBC 2.89 M/uL (4.20-5.40); RDW 16.5 % (11.5-14.0); WBC 9.8 K/uL (4.0-10.5)
[2021-03-14 04:33] LABS: BUN/CREAT RATIO (CALC) 90.9 RATIO; CREATININE 0.22 mg/dL (0.51-0.95); POTASSIUM 4.2 mmol/L (3.5-5.1)
[2021-03-15 04:49] LABS: BASOPHIL 0.3 % (0-2); EOSINOPHIL 2.1 % (0-7); HCT 30.3 % (37.0-47.0); HGB 9.4 g/dl (12.5-16.0); LYMPHOCYTE 3.9 % (15-48); MCH 30.7 pg (25.0-31.0); MONOCYTE 3.7 % (0-12); MPV 10.6 fL (6.0-9.5); NEUTROPHIL 85.2 % (41-80); NRBC 0.3; PLT 169 K/uL (150-400); RBC 3.06 M/uL (4.20-5.40); RDW 16.6 % (11.5-14.0)
[2021-03-15 04:54] LABS: WBC 11.1 K/uL (4.0-10.5)
[2021-03-15 05:36] LABS: BUN/CREAT RATIO (CALC) 138.1 RATIO; CREATININE 0.21 mg/dL (0.51-0.95); POTASSIUM 4.2 mmol/L (3.5-5.1)
--- NOTE | 2021-03-16 14:46 | NUR ---
1030 PT READY FOR PRONE POSITIONING PER PROTOCOL. BIS 48, TOF 1/4 PT TURNED TO PRONE POSITION, EMERSON LAWS AT BEDSIDE, DR. SARGENT NEARBY. PT TURNED TO PRONE POSITION W/O DIFFICULTY WITH RONNA ROUSSEAU, SERENITY GONSALES, OLIVIER GONSALES AND MYSELF. PT TOLERATED WELL.
[2021-03-17 03:23] LABS: BASOPHIL 0.2 % (0-2); EOSINOPHIL 1.9 % (0-7); HCT 28.3 % (37.0-47.0); HGB 8.8 g/dl (12.5-16.0); LYMPHOCYTE 5.7 % (15-48); MCH 30.2 pg (25.0-31.0); MCHC 31.1 g/dL (32.0-36.0); MCV 97.3 fL (78.0-100.0); MPV 10.3 fL (6.0-9.5); NEUTROPHIL 85.7 % (41-80); NRBC 0; PLT 154 K/uL (150-400); RBC 2.91 M/uL (4.20-5.40); RDW 16.1 % (11.5-14.0); WBC 9.8 K/uL (4.0-10.5)
[2021-03-17 03:46] LABS: BUN 19 mg/dL (7-18); CHLORIDE 103 mmol/L (98-107); CO2 (BICARBONATE) 38 mmol/L (21-32); CREATININE 0.19 mg/dL (0.51-0.95); GLUCOSE 103 mg/dL (74-106); POTASSIUM 4.2 mmol/L (3.5-5.1)
--- NOTE | 2021-03-17 18:16 | NUR ---
PT VEC WAS D/C AT 0840 RESTRIANTS WERE APPLIED AT 0900 PT WAS GIVEN SEDATION VACATION, AFTER 10 MINUTES PT WAS STILL NON-RESPONSIVE TO COMMANDS, BUT BLOOD PRESSURE INCREASED TO THE 200'S SYSTOLIC AND O2 SATURATION BEGAN TOSLOWLY DECLINE TO 87% ALL DRIPS WERE RESTARTED DIPRIVAN 25MCG/ 9.2ML VERSED 5MG/ 5ML FENTANYL 150MCG/ 15ML VEC WAS NOT RESTARTED
--- NOTE | 2021-03-17 18:19 | NUR ---
PT WAS PRONED AT 1300 SATURATION WERE 88% ON THE VENTILATOR VEC WAS RESTARTED AT 1240 FOR PRONING PROCESS AFTER PATIENT WAS PRONED VEC WAS STOPPED ALL OTHER DRIPS WERE CONTINUOUS
[2021-03-19 03:43] LABS: BASOPHIL 0.2 % (0-2); EOSINOPHIL 5.6 % (0-7); HCT 27.3 % (37.0-47.0); HGB 8.4 g/dl (12.5-16.0); MCHC 30.8 g/dL (32.0-36.0); MCV 97.5 fL (78.0-100.0); MONOCYTE 3.2 % (0-12); MPV 10.3 fL (6.0-9.5); NEUTROPHIL 80.2 % (41-80); NRBC 0; PLT 181 K/uL (150-400); RDW 16.2 % (11.5-14.0); WBC 8.4 K/uL (4.0-10.5)
[2021-03-19 04:16] LABS: C-REACTIVE PROTEIN 10.5 mg/dL (<=0.90); CREATININE 0.2 mg/dL (0.51-0.95); POTASSIUM 4.1 mmol/L (3.5-5.1)
--- NOTE | 2021-03-19 10:37 | NUR ---
1020-PT READY FOR PRONE POSITION PER PROTOCOL. VEC STARTED AT 0915. PT BIS 52 WITH TOF 1/4. EMERSON RT AT BEDSIDE. DR. PETE NEARBY. RONNA RICH RN, LUCAS RN AND MYSELF AT BEDSIDE. PT TURNED TO PRONE POSITION WITHOUT DIFFICULTY. O2 SAT 91% ABP 150/66.
[2021-03-21 04:25] LABS: BASOPHIL 0.2 % (0-2); EOSINOPHIL 7.4 % (0-7); HCT 29.4 % (37.0-47.0); HGB 9.1 g/dl (12.5-16.0); LYMPHOCYTE 11.9 % (15-48); MCH 30.2 pg (25.0-31.0); MCV 97.7 fL (78.0-100.0); MONOCYTE 3.5 % (0-12); MPV 9.9 fL (6.0-9.5); NEUTROPHIL 74.4 % (41-80); NRBC 0; PLT 234 K/uL (150-400); RBC 3.01 M/uL (4.20-5.40); RDW 15.6 % (11.5-14.0); WBC 4.3 K/uL (4.0-10.5)
[2021-03-21 04:42] LABS: ALBUMIN 1.2 g/dL (3.4-5.0); BILIRUBIN - TOTAL 0.3 mg/dL (0.2-1.0); BUN/CREAT RATIO (CALC) 68.4 RATIO; C-REACTIVE PROTEIN 6.1 mg/dL (<=0.90); CREATININE 0.19 mg/dL (0.51-0.95); GLOBULIN (CALCULATION) 3.6 g/dL; TOTAL PROTEIN 4.8 g/dL (6.4-8.2)
--- NOTE | 2021-03-21 05:54 | NUR ---
PATIENT FLIPPED BACK TO SUPINE W/O INCIDENT
--- NOTE | 2021-03-21 06:13 | NUR ---
PT TURNED TO BACK 03/21 AT 0545. ALL LINES AND TUBES IN PLACE. NO DISTRESS. WILL CONTINUE TO MONITOR
--- NOTE | 2021-03-21 13:36 | NUR ---
Proteinex 18 received from pharmacy and delivered to floor by RD. Explained to RN Daina different product, and variations to EN regimen. obtained patient - informed RN of new recs in EMR for EN support.
--- NOTE | 2021-03-21 13:42 | NUR ---
03/21/21 Marta has an available bed at [facility]. Clinicals will be faxed for consideration following Dr. Floyd's conversation with family. - Report given to Dr. Floyd.
--- NOTE | 2021-03-21 20:42 | NUR ---
Nutrition follow-up completed; new recs discussed with MD Floyd; order placed- reviewed new order with ILDA Lama also. [facility]
[2021-03-23 04:23] LABS: BASOPHIL 0.4 % (0-2); EOSINOPHIL 0.8 % (0-7); HGB 8.2 g/dl (12.5-16.0); LYMPHOCYTE 13.4 % (15-48); MCH 30.1 pg (25.0-31.0); MCHC 30.4 g/dL (32.0-36.0); MCV 99.3 fL (78.0-100.0); MPV 9.6 fL (6.0-9.5); NEUTROPHIL 75.2 % (41-80); NRBC 0; PLT 273 K/uL (150-400); RBC 2.72 M/uL (4.20-5.40); RDW 15.7 % (11.5-14.0)
[2021-03-23 04:27] LABS: WBC 5.2 K/uL (4.0-10.5)
[2021-03-23 04:51] LABS: ALBUMIN 1.4 g/dL (3.4-5.0); ALKALINE PHOSHATASE 125 U/L (46-116); ALT 85 U/L (14-59); AST 69 U/L (15-37); BILIRUBIN - TOTAL 0.3 mg/dL (0.2-1.0); BUN 22 mg/dL (7-18); BUN/CREAT RATIO (CALC) 122.2 RATIO; CHLORIDE 105 mmol/L (98-107); CO2 (BICARBONATE) 39 mmol/L (21-32); CREATININE 0.18 mg/dL (0.51-0.95); GLOBULIN (CALCULATION) 3.2 g/dL; GLUCOSE 120 mg/dL (74-106); MAGNESIUM 1.9 mg/dL (1.8-2.4); POTASSIUM 3.4 mmol/L (3.5-5.1); TOTAL PROTEIN 4.6 g/dL (6.4-8.2)
--- NOTE | 2021-03-24 02:17 | NUR ---
ANIYAH PABLO NOTIFIED AT 2044 OF BP 193/82 NEW ORDER FOR METOPROLOL 5MG IVP. BP DOROPPED TO 156/72. WHEN TURNING PATIENT BP DROPPED TO 81/56 ANIYAH NOTIFIED. SEDATION DRUGS TITRATED DOWN. BP CURRENTLY 94/70
[2021-03-24 03:19] LABS: BASOPHIL 0.6 % (0-2); EOSINOPHIL 0.4 % (0-7); HGB 9.8 g/dl (12.5-16.0); LYMPHOCYTE 12.8 % (15-48); MCH 30.4 pg (25.0-31.0); MCHC 30.6 g/dL (32.0-36.0); MCV 99.4 fL (78.0-100.0); MONOCYTE 4.3 % (0-12); MPV 9.6 fL (6.0-9.5); NEUTROPHIL 74.6 % (41-80); NRBC 0.7; PLT 339 K/uL (150-400); RBC 3.22 M/uL (4.20-5.40)
[2021-03-24 03:23] LABS: WBC 8.2 K/uL (4.0-10.5)
[2021-03-24 03:49] LABS: BUN/CREAT RATIO (CALC) 140.9 RATIO; CREATININE 0.22 mg/dL (0.51-0.95); POTASSIUM 4.3 mmol/L (3.5-5.1)
[2021-03-25 04:17] LABS: BASOPHIL 0.4 % (0-2); EOSINOPHIL 0.5 % (0-7); HCT 31.5 % (37.0-47.0); HGB 9.5 g/dl (12.5-16.0); LYMPHOCYTE 16.7 % (15-48); MCH 30.1 pg (25.0-31.0); MCHC 30.2 g/dL (32.0-36.0); MCV 99.7 fL (78.0-100.0); MONOCYTE 6.1 % (0-12); MPV 9.6 fL (6.0-9.5); NEUTROPHIL 68.4 % (41-80); NRBC 1.3; PLT 353 K/uL (150-400); RBC 3.16 M/uL (4.20-5.40); RDW 16.8 % (11.5-14.0)
[2021-03-25 04:18] LABS: WBC 9.8 K/uL (4.0-10.5)
[2021-03-25 06:35] LABS: CREATININE 0.2 mg/dL (0.51-0.95); POTASSIUM 3.8 mmol/L (3.5-5.1)
--- NOTE | 2021-03-25 23:08 | NUR ---
SPOKE WITH ANIYAH TO INFORM HER PT WAS HTN AT START OF SHIFT, NOW PT BP HAS BEEN SLOWLY DECREASING, INFORED HER THAT I HAVE DECREASED HER DRIPS PER CHARTING. STATED THAT CURRENT BP IS 98/60 (74) SHE STATED THAT SHE IS OKAY WITH THIS WILL CTM.
[2021-03-26 04:31] LABS: BASOPHIL 0.6 % (0-2); HCT 31.4 % (37.0-47.0); HGB 9.5 g/dl (12.5-16.0); LYMPHOCYTE 18.3 % (15-48); MCH 30.3 pg (25.0-31.0); MCHC 30.3 g/dL (32.0-36.0); MONOCYTE 5.4 % (0-12); MPV 9.6 fL (6.0-9.5); NEUTROPHIL 68.1 % (41-80); NRBC 1.6; PLT 340 K/uL (150-400); RBC 3.14 M/uL (4.20-5.40); RDW 17.1 % (11.5-14.0); WBC 8.9 K/uL (4.0-10.5)
[2021-03-26 05:33] LABS: CREATININE 0.2 mg/dL (0.51-0.95); MAGNESIUM 2.1 mg/dL (1.8-2.4); POTASSIUM 3.3 mmol/L (3.5-5.1)
[2021-03-27 04:37] LABS: BASOPHIL 0.4 % (0-2); EOSINOPHIL 1.3 % (0-7); HCT 30.9 % (37.0-47.0); HGB 9.2 g/dl (12.5-16.0); LYMPHOCYTE 21.6 % (15-48); MCH 30.2 pg (25.0-31.0); MCHC 29.8 g/dL (32.0-36.0); MCV 101.3 fL (78.0-100.0); MONOCYTE 5.3 % (0-12); MPV 9.7 fL (6.0-9.5); NEUTROPHIL 66.2 % (41-80); NRBC 1.3; PLT 292 K/uL (150-400); RBC 3.05 M/uL (4.20-5.40); RDW 17.3 % (11.5-14.0); WBC 7.7 K/uL (4.0-10.5)
[2021-03-27 04:55] LABS: CREATININE 0.2 mg/dL (0.51-0.95); MAGNESIUM 2.1 mg/dL (1.8-2.4); POTASSIUM 3.8 mmol/L (3.5-5.1)
--- NOTE | 2021-03-27 16:33 | NUR ---
0940 SEDATION VACATION STARTED. RESTARTED AT 1030 1100 PT DESATED DOWN TO 86%, DR ELY ORDERED TO INCREASE PEEP TO 12 THE TO 14 WITH NO HELP IN SAT WAS THEN INSTRUCTED TO PRONE THE PATIENT. PRONING PREFORMED WITH 2 RNS AND 2 MILLING MACHINIST AND ONE 1 RT. SATS RETURNED TO 91% AFTER PRONING
[2021-03-28 05:37] LABS: BASOPHIL 0.4 % (0-2); EOSINOPHIL 1.6 % (0-7); HCT 32.8 % (37.0-47.0); HGB 9.6 g/dl (12.5-16.0); LYMPHOCYTE 25.4 % (15-48); MCH 29.8 pg (25.0-31.0); MCHC 29.3 g/dL (32.0-36.0); MCV 101.9 fL (78.0-100.0); MONOCYTE 5.6 % (0-12); NEUTROPHIL 62.9 % (41-80); NRBC 0.5; PLT 307 K/uL (150-400); RBC 3.22 M/uL (4.20-5.40); RDW 17.6 % (11.5-14.0); WBC 9.3 K/uL (4.0-10.5)
[2021-03-28 06:02] LABS: BUN/CREAT RATIO (CALC) 131.6 RATIO; CREATININE 0.19 mg/dL (0.51-0.95); POTASSIUM 4.1 mmol/L (3.5-5.1)
[2021-03-29 03:47] LABS: BASOPHIL 0.6 % (0-2); EOSINOPHIL 0.1 % (0-7); HCT 35.4 % (37.0-47.0); HGB 9.8 g/dl (12.5-16.0); LYMPHOCYTE 12.1 % (15-48); MCHC 27.7 g/dL (32.0-36.0); MONOCYTE 7.2 % (0-12); MPV 10.1 fL (6.0-9.5); NRBC 2.2; PLT 392 K/uL (150-400); RBC 3.27 M/uL (4.20-5.40); RDW 17.5 % (11.5-14.0)
[2021-03-29 03:50] LABS: MCV 108.3 fL (78.0-100.0); NEUTROPHIL 74.5 % (41-80); WBC 17.1 K/uL (4.0-10.5)
[2021-03-29 04:10] LABS: CREATININE 0.53 mg/dL (0.51-0.95)
[2021-03-29 04:17] LABS: POTASSIUM 5.9 mmol/L (3.5-5.1)
--- NOTE | 2021-03-29 20:06 | NUR ---
1930 Chapalin called r/t several family memebers showing up unaware patient had . Family hysterical crying and asking what happened. No information given r/t events leading up to . Patients called by primary nurse Abdoulaye to ask about sharing information and to notify of family here. did not want information leading up to patients shared with them. He asked they call him and get the information. All nursing staff honored his wishes and instructed them to talk with him for information. Family understanding of this. 2000: Chapveronica here and debriefed on situtaion. She went in room, spoke with family, prayed with them, offered condolence, and educatied on infection control risk. House superviser and chapalin together educating on infection control, making sure visitors are in gown, gloves, mask and doing crowd control. Allowing 2-3 people in a time and allowing the rest to be in the designated waiting room. Offered to let them stay in there and support each other while awaiting the arrival of home.
--- NOTE | 2021-03-29 20:55 | NUR ---
arrived and took patients body to home. Family left at the time of their arrival.
== END 2021-03-29 21:04 | disposition expired | DRG 207 ==
LOC: FER 20:48 → FTCU 02-18 00:25 → FICU 02-23 12:21
PROVIDERS: Emergency Medicine Emergency Medical Services; Internal Medicine; Nurse Practitioner; ADMIT Allergy & Immunology Allergy
PROC: 8E0ZXY6 Isolation (ICD-10-PCS; 2021-02-18)
PROC: XW033E5 Introduction of Remdesivir Anti-infective into Peripheral Vein, Percutaneous Approach, New Technology Group 5 (ICD-10-PCS; 2021-02-18)
PROC: XW033H5 Introduction of Tocilizumab into Peripheral Vein, Percutaneous Approach, New Technology Group 5 (ICD-10-PCS; 2021-02-18)
PROC: 5A0955A Assistance with Respiratory Ventilation, Greater than 96 Consecutive Hours, High Flow/Velocity Cannula (ICD-10-PCS; 2021-02-20)
PROC: 5A1955Z Respiratory Ventilation, Greater than 96 Consecutive Hours (ICD-10-PCS; principal; 2021-02-23)
PROC: 0BH17EZ Insertion of Endotracheal Airway into Trachea, Via Natural or Artificial Opening (ICD-10-PCS; 2021-02-23)
PROC: 0W9B30Z Drainage of Left Pleural Cavity with Drainage Device, Percutaneous Approach (ICD-10-PCS; 2021-02-26)
PROC: 0W9930Z Drainage of Right Pleural Cavity with Drainage Device, Percutaneous Approach (ICD-10-PCS; 2021-02-26)
PROC: 02HV33Z Insertion of Infusion Device into Superior Vena Cava, Percutaneous Approach (ICD-10-PCS; 2021-02-26)
PROC: B548ZZA Ultrasonography of Superior Vena Cava, Guidance (ICD-10-PCS; 2021-02-26)
PROC: 3E043XZ Introduction of Vasopressor into Central Vein, Percutaneous Approach (ICD-10-PCS; 2021-02-26)
PROC: 0BJ08ZZ Inspection of Tracheobronchial Tree, Via Natural or Artificial Opening Endoscopic (ICD-10-PCS; 2021-03-18)
DX: U07.1 COVID-19 (principal); L89.153 Pressure ulcer of sacral region, stage 3; J95.811 Postprocedural pneumothorax; J12.82 Pneumonia due to coronavirus disease 2019; I21.A1 Myocardial infarction type 2; J80 Acute respiratory distress syndrome; B37.1 Pulmonary candidiasis; A41.9 Sepsis, unspecified organism; E87.3 Alkalosis; E87.2 Acidosis; J95.851 Ventilator associated pneumonia; J95.859 Other complication of respirator [ventilator]; J94.8 Other specified pleural conditions; Z51.5 Encounter for palliative care; B96.1 Klebsiella pneumoniae [K. pneumoniae] as the cause of diseases classified elsewhere; K66.8 Other specified disorders of peritoneum; E87.70 Fluid overload, unspecified; K59.00 Constipation, unspecified; E87.6 Hypokalemia; T50.1X5A Adverse effect of loop [high-ceiling] diuretics, initial encounter; S19.9XXA Unspecified injury of neck, initial encounter; Z78.1 Physical restraint status; I10 Essential (primary) hypertension; E78.5 Hyperlipidemia, unspecified; K21.9 Gastro-esophageal reflux disease without esophagitis; K22.70 Barrett's esophagus without dysplasia; M81.0 Age-related osteoporosis without current pathological fracture; J98.2 Interstitial emphysema; R73.9 Hyperglycemia, unspecified; Z98.51 Tubal ligation status; Z88.1 Allergy status to other antibiotic agents; Z98.890 Other specified postprocedural states; Y95 Nosocomial condition; Y84.8 Other medical procedures as the cause of abnormal reaction of the patient, or of later complication, without mention of misadventure at the time of the procedure
CPT/HCPCS: 31500; 36415; 36600; 71045; 71275; 74018; 80048; 80053; 80202; 81001; 82728; 82803; 82962; 83605; 83735; 84145; 84478; 84484; 85025; 85610; 86140; 87040; 87070; 87077; 87088; 87186; 87205; 93005; 94002; 94010; 94640; 94664; 94667; 94668; C9113; C9399; J0171; J0360; J0456; J0637; J1100; J1160; J1650; J1940; J1956; J2060; J2185; J2250; J2405; J2704; J3010; J3262; J3480; J7030; J7040; J7050; J7060; J7120; J8540; Q9967; U0002